=== PATIENT | male | born 1950 | race Asian ===

== ENCOUNTER → 2024-08-31 | Outpatient (CLI) | payer OTHER, SELFPAY ==
[2024-08-31 13:06] LABS: Collection Type, Urine Clean Catch; Squamous Epithelial Cell,Urine 0 /hpf (0-5)
[2024-08-31 13:22] LABS: Basophils # (Auto) 0.1 Thou/mm3 (0.0-0.2); Basophils % (Auto) 1 % (0-2.5); Eosinophils # (Auto) 0.4 Thou/mm3 (0.0-0.5); Eosinophils % (Auto) 5 % (0-10); Hematocrit 42.8 % (41.0-53.0); Hemoglobin 14.7 g/dL (13.5-16.0); Immature Granulocytes % (Auto) 0 % (0-0); Immature Granulocytes Auto 0.01 Thou/mm3 (0.00-0.00); Lymphocytes # (Auto) 2.7 Thou/mm3 (1.0-4.8); Lymphocytes % (Auto) 35 % (10-50); Mean Corpuscular HGB Conc 34.3 g/dl (31.0-37.0); Mean Corpuscular Hemoglobin 29.5 pg (25.0-35.0); Mean Corpuscular Volume 86 fL (80-100); Monocytes # (Auto) 0.6 Thou/mm3 (0.0-0.8); Monocytes % (Auto) 8 % (0-12); Neutrophils % (Auto) 51 % (37-80); Nucleated Red Blood Cell % 0 /100 WBC (0); Platelet Count 246 Thou/mm3 (140-440); RDW Standard Deviation 38.1 fL (35.1-43.9); Red Blood Count 4.99 Miln/mm3 (4.50-5.90); White Blood Count 7.8 Thou/mm3 (3.8-10.6)
[2024-08-31 13:32] LABS: Bilirubin,Urine Negative (Negative); Blood,Urine Negative (Negative); Clarity,Urine Clear (Clear/Hazy); Color,Urine Colorless (Lt Yel-Yel); Culture Indicated,Urine Not Indicated; Glucose, Urine Negative (Negative); Ketones,Urine Negative (Negative); Leukocyte Esterase,Urine Negative (Negative); Nitrite,Urine Negative (Negative); PH,Urine 6.5 (5.0-7.0); Protein,Urine Negative (Neg - Trace); RBC,Urine < 1 /hpf (0-3); Specific Gravity,Urine 1.006 (1.001-1.035); Urobilinogen,Urine Negative mg/dL (0.0-1.0); WBC,Urine 1 /hpf (0-5)
[2024-08-31 13:35] LABS: PSA Medicare Annual Scrn 0.56 ng/mL (0-4.00)
[2024-08-31 13:41] LABS: Alanine Aminotransferase 21 U/L (10-49); Albumin, Serum 4.4 gm/dL (3.4-4.8); Albumin/Globulin Ratio 1.5 (1.2-2.2); Alkaline Phosphatase 66 U/L (46-116); Anion Gap 8 (7-16); Aspartate Amino Transferase 26 U/L (0-34); BUN/Creatinine Ratio 12 Ratio (12-20); Bilirubin,Total 0.9 mg/dL (0.3-1.2); Blood Urea Nitrogen 11 mg/dL (9-23); Calcium 9.2 mg/dL (8.3-10.6); Calcium (Corrected) 9.2 mg/dL (8.5-10.1); Carbon Dioxide 28.6 mMol/L (20.0-31.0); Cardiac Risk Estimate 4.1 RATIO (4.0-6.7); Chloride 102 mMol/L (98-107); Cholesterol 198 mg/dL (132-200); Creatinine (Component) 0.9 mg/dL (0.6-1.3); Free T4 (Free Thyroxine) 1.15 ng/dL (0.89-1.76); Globulin 2.9 gm/dL (2.3-3.5); Glucose 85 mg/dL (74-106); HDL Cholesterol 48 mg/dL (40-60); LDL Cholesterol,Calculated 129 mg/dL (0-130); Osmolality,Calculated 275 (275-295); Potassium 3.6 mMol/L (3.4-5.1); Sodium 139 mMol/L (136-145); Thyroid Stimulating Hormone 0.77 uIU/mL (0.55-4.78); Total Protein 7.3 gm/dL (5.7-8.2); Triglycerides 107 mg/dL (30-150); eGFR > 60 See Note
== END | disposition home or self-care (01) ==
LOC: COPL 11:56
PROVIDERS: PCP Internal Medicine; Referring Provider Internal Medicine; Visit Provider Internal Medicine
DX: I10 Essential (primary) hypertension (principal)
CPT/HCPCS: 36415; 80053; 80061; 81001; 84153; 84439; 84443; 85025; G0103

== ENCOUNTER → 2024-09-03 | Outpatient (CLI) | payer OTHER, SELFPAY ==
[2024-09-03 14:43] LABS: OBS Performed By LAB; OBS QC OK? Yes
[2024-09-03 15:40] LABS: Occult Blood, Stool Negative (Negative); Occult Blood, Stool #2 Negative (Negative); Occult Blood, Stool #3 Negative (Negative)
[2024-09-03 15:41] LABS: OBS Developer Expiration Date 123126; OBS Developer Lot # 1-24 551749
== END | disposition home or self-care (01) ==
LOC: SLDO 14:27
PROVIDERS: PCP Internal Medicine; Referring Provider Internal Medicine; Visit Provider Internal Medicine
DX: I10 Essential (primary) hypertension (principal)
CPT/HCPCS: 82270

== ENCOUNTER → 2024-10-06 | Outpatient (CLI) | payer OTHER, SELFPAY ==
[2024-10-06 13:01] LABS: Collection Type, Urine Clean Catch; Squamous Epithelial Cell,Urine 0 /hpf (0-5)
[2024-10-06 13:32] LABS: Basophils # (Auto) 0.1 Thou/mm3 (0.0-0.2); Basophils % (Auto) 1 % (0-2.5); Eosinophils # (Auto) 0.3 Thou/mm3 (0.0-0.5); Eosinophils % (Auto) 3 % (0-10); Hematocrit 43.1 % (41.0-53.0); Immature Granulocytes % (Auto) 0 % (0-0); Immature Granulocytes Auto 0.03 Thou/mm3 (0.00-0.00); Lymphocytes # (Auto) 2.6 Thou/mm3 (1.0-4.8); Lymphocytes % (Auto) 25 % (10-50); Mean Corpuscular HGB Conc 34.8 g/dl (31.0-37.0); Mean Corpuscular Hemoglobin 29.5 pg (25.0-35.0); Mean Corpuscular Volume 85 fL (80-100); Monocytes # (Auto) 0.8 Thou/mm3 (0.0-0.8); Monocytes % (Auto) 8 % (0-12); Neutrophils # (Auto) 6.7 Thou/mm3 (1.8-7.7); Neutrophils % (Auto) 64 % (37-80); Nucleated Red Blood Cell % 0 /100 WBC (0); Platelet Count 228 Thou/mm3 (140-440); RDW Standard Deviation 36.9 fL (35.1-43.9); Red Blood Count 5.09 Miln/mm3 (4.50-5.90); White Blood Count 10.5 Thou/mm3 (3.8-10.6)
[2024-10-06 13:36] LABS: Bilirubin,Urine Negative (Negative); Blood,Urine Negative (Negative); Clarity,Urine Clear (Clear/Hazy); Color,Urine Lt-Yellow (Lt Yel-Yel); Culture Indicated,Urine Not Indicated; Glucose, Urine Negative (Negative); Ketones,Urine Trace (Negative); Leukocyte Esterase,Urine Negative (Negative); Nitrite,Urine Negative (Negative); PH,Urine 6.5 (5.0-7.0); Protein,Urine Negative (Neg - Trace); RBC,Urine 4 /hpf (0-3); Specific Gravity,Urine 1.019 (1.001-1.035); Urobilinogen,Urine Negative mg/dL (0.0-1.0); WBC,Urine 1 /hpf (0-5)
[2024-10-06 13:43] LABS: Glucose Estimated Average 108 mg/dL (80-131); Hemoglobin A1C 5.4 % Hgb (4.8-6.0)
[2024-10-06 13:50] LABS: Alanine Aminotransferase 17 U/L (10-49); Albumin, Serum 4.5 gm/dL (3.4-4.8); Albumin/Globulin Ratio 1.4 (1.2-2.2); Alkaline Phosphatase 73 U/L (46-116); Anion Gap 9 (7-16); Aspartate Amino Transferase 24 U/L (0-34); BUN/Creatinine Ratio 13 Ratio (12-20); Bilirubin,Direct 0.2 mg/dL (0.0-0.3); Bilirubin,Total 0.9 mg/dL (0.3-1.2); Blood Urea Nitrogen 12 mg/dL (9-23); Carbon Dioxide 27.3 mMol/L (20.0-31.0); Cardiac Risk Estimate 4.1 RATIO (4.0-6.7); Chloride 103 mMol/L (98-107); Cholesterol 190 mg/dL (132-200); Creatinine (Component) 0.9 mg/dL (0.6-1.3); Globulin 3.2 gm/dL (2.3-3.5); Glucose 92 mg/dL (74-106); HDL Cholesterol 46 mg/dL (40-60); LDL Cholesterol,Calculated 117 mg/dL (0-130); Osmolality,Calculated 277 (275-295); Potassium 3.8 mMol/L (3.4-5.1); Sodium 139 mMol/L (136-145); Total Protein 7.7 gm/dL (5.7-8.2); Triglycerides 135 mg/dL (30-150); eGFR > 60 See Note
== END | disposition home or self-care (01) ==
LOC: COPL 12:15
PROVIDERS: PCP Internal Medicine; Referring Provider Internal Medicine; Visit Provider Internal Medicine Cardiovascular Disease
DX: I10 Essential (primary) hypertension (principal); E78.5 Hyperlipidemia, unspecified
CPT/HCPCS: 36415; 80053; 80061; 81001; 82248; 83036; 84153; 84439; 84443; 85025

== ENCOUNTER → 2024-10-08 | Outpatient (CLI) | payer OTHER, SELFPAY ==
[2024-10-08 11:55] LABS: OBS Performed By LAB; OBS QC OK? Yes
[2024-10-08 14:10] LABS: OBS Developer Lot # 551749
[2024-10-08 14:11] LABS: Occult Blood, Stool Negative (Negative); Occult Blood, Stool #2 Negative (Negative); Occult Blood, Stool #3 Negative (Negative)
== END | disposition home or self-care (01) ==
LOC: SLDO 11:46
PROVIDERS: PCP Internal Medicine Cardiovascular Disease; Referring Provider Internal Medicine Cardiovascular Disease; Visit Provider Internal Medicine Cardiovascular Disease
DX: I10 Essential (primary) hypertension (principal)
CPT/HCPCS: 82270

== ENCOUNTER 2024-11-11 09:57 | Emergency (ER) | payer OTHER, SELFPAY ==
[2024-11-11 09:59] VITALS: BMI 28.3
[2024-11-11 10:21] VITALS: BP 167/85; PULSE 56; RESP 19; TEMP 37; O2SAT 97; BMI 28.3
--- NOTE | 2024-11-11 10:24 | XR_ITS ---
Examination: Hand, right 3 views Technique: Hand AP, oblique, lateral 3 views Date and time of exam: November 11, 2024 1029 hours INDICATIONS: Laceration injury to the fifth digit this morning, pain FINDINGS: Soft tissue defect distal fifth digit Comminuted fractures off the distal phalanx fifth digit which are displaced, the largest fracture fragment measures 7 mm No dislocation No definite opaque foreign bodies IMPRESSION: Comminuted fractures off the distal phalanx fifth digit
--- NOTE | 2024-11-11 10:27 | PD.EDHAND ---
Upper Extremity Injury RME/HPI General Chief Complaint: Hand/Wrist Problems Stated Complaint: CUT TO RIGHT FIFTH FINGER TODAY Time Seen by Provider: 11/11/24 10:15 Source: patient Arrival date/time: 11/11/24 09:57 74-year-old male with no known medical history presents to the emergency room with a chief complaint of a laceration to his right hand fifth digit that occurred while using an electric saw. Mode of arrival: ambulatory Limitations: no limitations Related Data Home Medications ?Medication ?Instructions ?Recorded ?Confirmed valsartan 160 1 tab PO QDAY 04/05/18 04/05/18 mg-hydrochlorothiazide 25 mg tablet (Diovan HCT) Previous Rx's ?Medication ?Instructions ?Recorded ibuprofen 800 mg tablet 800 mg PO TID PRN fever or pain 04/05/18 #30 tabs baclofen 10 mg tablet 10 mg PO BID PRN muscle spasm #10 11/07/23 tabs meloxicam 7.5 mg tablet 7.5 mg PO QDAY #10 tabs 11/07/23 Allergies Allergy/AdvReac Type Severity Reaction Status Date / Time No Known Allergies Allergy Verified 11/11/24 10:00 ED Exam General Limitations: Present no limitations Course Orders Category Date Time Status Set Up Suture Tray STAT Care 11/11/24 10:25 Active Wound Care NOW Care 11/11/24 10:25 Active XR hand comp RT min 3V Stat Exams 11/11/24 10:24 Ordered Lidocaine 1% 20 ml [Xylocaine 1% 20 ML] Med 11/11/24 10:24 Discontinued 20 ml INFL X1 ONE TET,DIP/PERT AC (Adult)-Tdap [Boostrix Adult (Tdap) Med 11/11/24 10:24 Discontinued Vacc] 0.5 ml IMI .ONCE ONE Vital Signs Vital signs: Vital Signs Temperature 98.6 F 11/11/24 10:21 Pulse Rate 56 L 11/11/24 10:21 Respiratory Rate 19 11/11/24 10:21 Blood Pressure 167/85 H 11/11/24 10:21 Pulse Oximetry (%) 97 11/11/24 10:21 Oxygen Delivery Method Room Air 11/11/24 10:21 Extremity Injury Medications / Prescriptions Medication administrations:: Medication Administration History Discontinued Medications Diphtheria/Tetanus/Acell Pertussis (Diphth,Pertuss(Acell),Tet Vac 0.5 Ml Syr- Adult) 0.5 ml IMi .ONCE ONE Stop: 11/11/24 10:25 Lidocaine HCl (Lidocaine Hcl 1% 20 Ml Vial) 20 ml INFL X1 ONE Stop: 11/11/24 10:25 Discharge Plan Prescriptions/Referrals Prescriptions/Med Rec: No Action valsartan-hydrochlorothiazide [Diovan HCT] 160-25 mg Tablet 1 tab PO QDAY ibuprofen 800 mg tablet 800 mg PO TID PRN (Reason: fever or pain) Qty: 30 0RF meloxicam 7.5 mg tablet 7.5 mg PO QDAY Qty: 10 0RF baclofen 10 mg tablet 10 mg PO BID PRN (Reason: muscle spasm) Qty: 10 0RF Patient/Caregiver Discharge Instructions Print Language: Cuban
--- NOTE | 2024-11-11 11:02 | EDRME_ITS ---
Rapid Medical Screening Exam [facility] Arrival date/time: 11/11/24 09:57 74-year-old male with no known medical history presents to the emergency room with a chief complaint of a laceration to his right hand fifth digit that occurred while using an electric saw. I have greeted and performed a focused initial assessment of this patient. A comprehensive ED assessment and evaluation of the patient, analysis of all test results, and completion of the medical decision making process will be conducted by additional ED providers. Chief Complaint: Hand/Wrist Problems Time Seen by Provider: 11/11/24 10:15 Vital signs: Vital Signs Temperature 98.6 F 11/11/24 10:21 Pulse Rate 56 L 11/11/24 10:21 Respiratory Rate 19 11/11/24 10:21 Blood Pressure 167/85 H 11/11/24 10:21 Pulse Oximetry (%) 97 11/11/24 10:21 Oxygen Delivery Method Room Air 11/11/24 10:21 Vital signs reviewed by provider: Yes
[2024-11-11] MEDS: DIPHTH,PERTUSS(ACELL),TET VAC 0.5 ML SYR- ADULT IMi (11:05)
[2024-11-11] MEDS: LIDOCAINE HCL 1% 20 ML VIAL INFL (11:05)
--- NOTE | 2024-11-11 11:45 | EDNOTE_ITS ---
<Statement entered by Gina Stuart MD - 11/12/24 06:24> As co-signing physician, I was present and available for consult prn. I concur with the plan and care as documented by the midlevel provider. Upper Extremity Injury RME/HPI General Chief Complaint: Hand/Wrist Problems Stated Complaint: CUT TO RIGHT FIFTH FINGER TODAY Time Seen by Provider: 11/11/24 10:15 Arrival date/time: 11/11/24 09:57 RME / HPI RME / HPI narrative: 74-year-old male with no known medical history presents to the emergency room with a chief complaint of a laceration to his right hand fifth digit that occurred while using an electric saw. Incident happened few minutes prior to ER visit. Denies any other complaints no medications taken prior to arrival. Related Data Home Medications ?Medication ?Instructions ?Recorded ?Confirmed valsartan 160 1 tab PO QDAY 04/05/1804/05 mg-hydrochlorothiazide 25 mg tablet (Diovan HCT) Previous Rx's ?Medication ?Instructions ?Recorded ibuprofen 800 mg tablet 800 mg PO TID PRN fever or p ain 04/05/18 #30 tabs baclofen 10 mg tablet 10 mg PO BID PRN muscle spas m #10 11/07/23 tabs meloxicam 7.5 mg tablet 7.5 mg PO QDAY #10 tabs 10/15 10/07 amoxicillin 875 mg-potassium 1 tab PO BID #14 tabs clavulanate 125 mg tablet ibuprofen 800 mg tablet 800 mg PO Q8H PRN pain #30 t abs 11/11/24 Allergies Allergy/AdvReac Type Severity Reaction Status Date / Time No Known Allergies Allergy Verified 11/11/24 10:00 Review of Systems Review of Systems Narrative Review of Systems: Review of system reviewed and within normal limits except mentioned in HPI ED Exam Narrative Physical exam: VITAL SIGNS: Reviewed. GENERAL APPEARANCE: Alert and interactive, follows commands, no acute distress, HEAD AND FACE: Non-traumatic. ENT: PERRL, pink conjunctivitis, eyelid no trauma, Mucous membrane moist. NECK: Supple, nontender, no nuchal rigidity. CHEST: No tenderness, no crepitus, no paradoxical movement, no retractions. LUNGS: Clear, well ventilated, symmetric, no rales, no wheezing, no ronchi, no stridor, good breath sounds bilaterally. HEART: Regular rate, regular rhythm, no murmur, no gallops. ABDOMEN: Soft, positive bowel sounds, nondistended, no guarding, nontender, no rebound, no masses, RECTAL: Deferred. GENITAL: Deferred. NEUROLOGICAL: Gross motor function intact sensory function intact, Appropriate for age. MUSCULOSKELETAL: low back nontender, full range of motion. EXTREMITIES: Regular laceration involving the nailbed, right pinky fingertip, full range of motion. SKIN: Color pink, dry, no rash, no lacerations, no abrasions, no contusions. LYMPHATICS: Deferred. Course Quality Measures none Orders Category Date Time Status Set Up Suture Tray STAT Care 11/11/24 10:25 Active Wound Care NOW Care 11/11/24 10:25 Active XR hand comp RT min 3V Stat Exams 11/11/24 10:24 Completed Amoxicillin/Pot Clav 875 [Augmentin 875] Med 11/11/24 11:42 Discontinued 1 tab PO X1 ONE Ibuprofen Tab [Motrin Tab] Med 11/11/24 12:11 Discontinued 800 mg PO X1 ONE Lidocaine 1% 20 ml [Xylocaine 1% 20 ML] Med 11/11/24 10:24 Discontinued 20 ml INFL X1 ONE TET,DIP/PERT AC (Adult)-Tdap [Boostrix Adult (Tdap) Med 11/11/24 10:24 Discontinued Vacc] 0.5 ml IMI .ONCE ONE Vital Signs Vital signs: Vital Signs Temperature 98.6 F 11/11/24 10:21 Pulse Rate 56 L 11/11/24 10:21 Respiratory Rate 19 11/11/24 10:21 Blood Pressure 167/85 H 11/11/24 10:21 Pulse Oximetry (%) 97 11/11/24 10:21 Oxygen Delivery Method Room Air 11/11/24 10:21 Procedures -ED Laceration Laceration 1: Site: hand (Right pinky finger) Size (cm): 2 Description: irregular Depth: [id number] Local Anesthetic: lidocaine 1% Amount of anesthesia used (mL): 10 Pre-repair: wound explored and irrigated extensively Skin layer closed with: nylon Size (cm): 5-0 Number of sutures: 10 Technique: simple, interrupted Extremity Injury MDM Narrative MDM Narrative:: 74-year-old male with no known medical history presents to the emergency room with a chief complaint of a laceration to his right hand fifth digit that occurred while using an electric saw. Incident happened few minutes prior to ER visit. Denies any other complaints no medications taken prior to arrival. X-ray of the finger showed commuted fracture of the distal phalanx right fifth finger. Prior suturing was done manage see procedure notes Patient received Augmentin and Tdap. Patient was placed in a splint Advised to follow-up with PCP and for referral to hand specialist Patient data External records reviewed:: None Clinical information provided by:: patient Social determinants that could affect healthcare access:: none Patient has the following chronic illnesses:: Hypertension How is presenting disease/condition affected by chronic disease/condition?: uneffected by Evaluation data The following diagnostics were reviewed and interpreted by me:: radiology exam(s) Lab and/or radiology exams considered but not ordered:: None Interpretation Summary: X-ray of the finger showed comminuted fracture distal phalanx Medications / Prescriptions Medications or Prescriptions considered but not ordered:: None Medication administrations:: Medication Administration History Discontinued Medications Amoxicillin/Clavulanate Potassium (Amoxicillin/Pot Clav 875 Tablet) 1 tab PO X1 ONE Stop: 11/11/24 11:43 Last Admin: 11/11/24 12:09 Dose: 1 tab Documented By: EH Diphtheria/Tetanus/Acell Pertussis (Diphth,Pertuss(Acell),Tet Vac 0.5 Ml Syr- Adult) 0.5 ml IMi .ONCE ONE Stop: 11/11/24 10:25 Last Admin: 11/11/24 11:05 Dose: 0.5 ml Documented By: OA Ibuprofen (Ibuprofen Tab 400 Mg Tablet) 800 mg PO X1 ONE Stop: 11/11/24 12:12 Last Admin: 11/11/24 12:16 Dose: 800 mg Documented By: EF Lidocaine HCl (Lidocaine Hcl 1% 20 Ml Vial) 20 ml INFL X1 ONE Stop: 11/11/24 10:25 Last Admin: 11/11/24 11:05 Dose: 20 ml Documented By: OA Boostrix, Augmentin, Motrin Consultations Consultation(s) initiated? (list below): No Diagnosis Upper Extremity Injury Differential Diagnosis: other (Open fracture distal phalanx finger, crush injury finger, finger injury) Most likely diagnosis given after review of the tests above:: Open fracture distal phalanx finger, crush finger injury Admission Indicated Admission indicated?: not indicated Explain why admission is indicated or not indicated:: None Admission Request Was there a request for admission?: No Disposition Plan Disposition Plan: Discharge Discharge Attestation Discharge Attestation: The patient and all family members were given an opportunity to ask questions and understood the discharge instructions. Discharge instructions specifically effects, indications for sooner follow up or return to the emergency department, and the expected course of current diagnosis. Patient condition: Stable Discharge Plan Plan Patient Disposition: HOME (Self Care) Discharge Disposition comment: Stable Prescriptions/Referrals Prescriptions/Med Rec: New amoxicillin-pot clavulanate 875-125 mg tablet 1 tab PO BID Qty: 14 0RF ibuprofen 800 mg tablet 800 mg PO Q8H PRN (Reason: pain) Qty: 30 0RF No Action valsartan-hydrochlorothiazide [Diovan HCT] 160-25 mg Tablet 1 tab PO QDAY ibuprofen 800 mg tablet 800 mg PO TID PRN (Reason: fever or pain) Qty: 30 0RF meloxicam 7.5 mg tablet 7.5 mg PO QDAY Qty: 10 0RF baclofen 10 mg tablet 10 mg PO BID PRN (Reason: muscle spasm) Qty: 10 0RF Referrals: Renu Gómez MD [Primary Care Provider] - In 1 week Problem List Clinical Impression: Crush injury to finger, Open fracture of distal phalanx of finger Patient/Caregiver Discharge Instructions Discharge Activity: activity as tolerated Education Materials: How [employer] Additional Instructions: Thank you for the opportunity for serving you today. You are stable for discharg ed . You are advised to: Follow-up with your PCP in 1 to 2 days and as per referral to hand specialist as needed Return to ED for worsening of symptoms Increase oral fluids Take medication as prescribed Dressing with bacitracin as instructed Wear your splint for the next 1 month For removal of sutures in 10 days Print Language: Italian Stand Alone Forms: Kendy Award Info., Patient Portal Info Letter PA/ASIF Supervising Physician MYNOR/ASIF Supervising Physician: MD Christiano
[2024-11-11] MEDS: AMOXICILLIN/POT CLAV 875 TABLET 1 TAB PO (12:09)
[2024-11-11] MEDS: IBUPROFEN TAB 400 MG TABLET 800 MG PO (12:16)
[2024-11-11 13:09] VITALS: BP 164/92; PULSE 60; RESP 16; O2SAT 97
== END 2024-11-11 13:10 | disposition home or self-care (01) ==
PROVIDERS: Emergency Provider Emergency Medicine; PCP Internal Medicine
DX: S61.216A Laceration without foreign body of right little finger without damage to nail, initial encounter (principal); W23.0XXA Caught, crushed, jammed, or pinched between moving objects, initial encounter; Z23 Encounter for immunization
CPT/HCPCS: 12001; 73130; 90471; 90715; 99283; J3490; A9270